=== PATIENT | female | born 1985 | race Asian ===

== ENCOUNTER → 2017-12-28 | Outpatient (CLI) | payer OTHER | END | disposition home or self-care (01) | LOC: CFH 13:48 | PROVIDERS: ATTEND Clinical Nurse Specialist Women's Health | DX: N63.23 Unspecified lump in the left breast, lower outer quadrant (principal); Z80.3 Family history of malignant neoplasm of breast | CPT/HCPCS: 77065; 77066; G0279 ==

== ENCOUNTER 2018-07-13 08:15 | Outpatient (CLI) | payer OTHER ==
[~2018-07-13] VITALS: Ht 170.2 cm; Wt 119.0 kg
[~2018-07-13 08:15] MED LIST: BUPIVACAINE/PF-EPI 0.5% 1:200K ONE; CEPH-368 PO; None per pt
[2018-07-13] MEDS ORDERED: PROMETHAZINE 25 MG/ML, 1ML IV PRN (09:00)
[2018-07-13] MEDS ORDERED: HALOPERIDOL 5 MG/ML IV PRN ×2 (09:00)
[2018-07-13] MEDS ORDERED: PROCHLORPERAZINE 5 MG/ML, 2ML IV PRN (09:00)
[2018-07-13] MEDS ORDERED: LABETALOL 5MG/ML, 20ML IV PRN (09:00)
[2018-07-13] MEDS ORDERED: MEPERIDINE/PF 25MG/0.5ML IVPush PRN (09:00)
[2018-07-13] MEDS ORDERED: HYDROmorphone 2 MG/ML, 1ML IVPush PRN (09:00)
[2018-07-13] MEDS ORDERED: METOPROLOL 1 MG/ML, 5ML IV PRN (09:00)
[2018-07-13] MEDS ORDERED: DIPHENHYDRAMINE 50 MG/ML, 1ML IVPush PRN (09:00)
[2018-07-13] MEDS ORDERED: hydrALAzine 20 MG/ML, 1ML IV PRN (09:00)
[2018-07-13] MEDS ORDERED: FENTANYL PF 100 MCG/2ML IV PRN (09:00)
[2018-07-13] MEDS ORDERED: OXYcodone 5 MG/5 ML ORAL.SOL UDC PO PRN (09:00)
[2018-07-13] MEDS ORDERED: LACTATED RINGERS 1,000 ML IV SCH (09:01)
[2018-07-13 09:11] VITALS: BP 133/95
[2018-07-13] MEDS ORDERED: GABAPENTIN 300 MG CAPSULE PO ONE (09:30)
[2018-07-13] MEDS ORDERED: ACETAMINOPHEN 500 MG TABLET PO ONE (09:30)
[2018-07-13] MEDS ORDERED: ONDANSETRON ODT 8 MG PO ONE (09:30)
[2018-07-13] MEDS ORDERED: SCOPOLAMINE PATCH, 1.5MG PATCH.TD72 TD ONE (09:30)
[2018-07-13] MEDS ORDERED: MIDAZOLAM 1 MG/ML, 2ML ONE (09:36)
[2018-07-13] MEDS ORDERED: FENTANYL PF 250 MCG/5ML ONE (09:36)
[2018-07-13 10:24] LABS: HCG UR SG 1.024 (1.003-1.030)
== END 2018-07-13 10:30 | disposition home or self-care (01) ==
LOC: CFH 08:15 → OUT 08:15 → EDSTATUS 10:00 → CFH 10:30 → OUT 10:30
PROVIDERS: ATTEND Surgery
DX: N61.1 Abscess of the breast and nipple (principal); Z53.8 Procedure and treatment not carried out for other reasons; J45.909 Unspecified asthma, uncomplicated; E66.9 Obesity, unspecified; F17.210 Nicotine dependence, cigarettes, uncomplicated; Z68.39 Body mass index [BMI] 39.0-39.9, adult; Z79.899 Other long term (current) drug therapy; Z80.3 Family history of malignant neoplasm of breast
CPT/HCPCS: 81025; J2250; J7120; Q0162; J3010

== ENCOUNTER 2018-08-17 10:31 | Day surgery (SDC) | payer OTHER ==
[~2018-08-17] VITALS: Ht 172.7 cm; Wt 119.6 kg
[~2018-08-17 10:31] MED LIST changes: -BUPIVACAINE/PF-EPI 0.5% 1:200K ONE
[2018-08-17] MEDS ORDERED: LACTATED RINGERS 1,000 ML IV SCH (11:14)
[2018-08-17] MEDS ORDERED: LIDOCAINE-MPF 1%, 2ML ONE (11:21)
[2018-08-17 11:30] VITALS: BP 121/83
[2018-08-17] MEDS ORDERED: GABAPENTIN 300 MG CAPSULE PO ONE (11:30)
[2018-08-17] MEDS ORDERED: LIDOCAINE-MPF 1%, 2ML INFIL ONE (11:30)
[2018-08-17] MEDS ORDERED: ONDANSETRON ODT 8 MG PO ONE (11:30)
[2018-08-17] MEDS ORDERED: ACETAMINOPHEN 500 MG TABLET PO ONE (11:30)
[2018-08-17] MEDS ORDERED: PLEASE ENTER HEIGHT AND WEIGHT MC SCH (11:30)
[2018-08-17] MEDS ORDERED: SCOPOLAMINE PATCH, 1.5MG PATCH.TD72 TD ONE (11:30)
[2018-08-17] MEDS ORDERED: SULF-169 PO (11:47)
[2018-08-17] MEDS ORDERED: METR-90 PO (11:47)
[2018-08-17 11:49] LABS: HCG UR SG 1.016 (1.003-1.030)
[2018-08-17] MEDS ORDERED: ISOSULFAN BLUE 10 MG/ML, 5ML IV ONE (13:11)
[2018-08-17] MEDS ORDERED: BUPIVACAINE/PF 0.25% ONE (13:11)
[2018-08-17] MEDS ORDERED: BUPIVACAINE/EPI 0.5% 1:200K ONE (13:11)
[2018-08-17] MEDS ORDERED: SODIUM BICARBONATE 4.0%, 5ML ONE (13:12)
[2018-08-17] MEDS ORDERED: EPINEPHRINE 1 MG/ML, 1ML ONE (13:12)
[2018-08-17] MEDS ORDERED: LIDOCAINE 1%, 20ML ONE (13:12)
[2018-08-17] MEDS ORDERED: SODIUM CHLORIDE 0.9% 100 ML ONE (13:12)
[2018-08-17] MEDS ORDERED: FENTANYL PF 100 MCG/2ML ONE ×2 (14:00→14:26)
[2018-08-17] MEDS ORDERED: MIDAZOLAM 1 MG/ML, 2ML ONE (14:00)
[2018-08-17] MEDS ORDERED: PROMETHAZINE 25 MG/ML, 1ML IV PRN (14:30)
[2018-08-17] MEDS ORDERED: ONDANSETRON ODT 8 MG PO PRN (14:30)
[2018-08-17] MEDS ORDERED: HYDROmorphone 2 MG/ML, 1ML IVPush PRN (14:30)
[2018-08-17] MEDS ORDERED: OXYcodone 5 MG/5 ML ORAL.SOL UDC PO PRN (14:30)
[2018-08-17] MEDS ORDERED: PROMETHAZINE 25 MG SUPP PR PRN (14:30)
[2018-08-17] MEDS ORDERED: ONDANSETRON 2MG/ML, 2ML IV PRN (14:30)
[2018-08-17] MEDS ORDERED: FENTANYL PF 100 MCG/2ML IV PRN (14:30)
[2018-08-17] MEDS ORDERED: CEFAZOLIN 1,000 MG ONE (14:42)
[2018-08-17] MEDS ORDERED: DEXAMETHASONE 4 MG/ML, 1ML ONE (14:42)
[2018-08-17] MEDS ORDERED: PROPOFOL 10 MG/ML, 20ML ONE (14:42)
[2018-08-17] MEDS ORDERED: ONDANSETRON 2MG/ML, 2ML ONE (14:42)
== END 2018-08-17 16:40 | disposition home or self-care (01) ==
LOC: OUT 10:31
PROVIDERS: ATTEND Surgery
DX: N60.12 Diffuse cystic mastopathy of left breast (principal); N60.22 Fibroadenosis of left breast
CPT/HCPCS: 19110; 81025; 88305; 88312; J0171; J0690; J1100; J2250; J2405; J2704; J3010; J3490; J7120; Q0162